=== PATIENT | male | born 1955 | race Caucasian/White ===

== ENCOUNTER 2018-10-12 | Inpatient (IN) | payer BC ==
[2018-10-12] MEDS ORDERED: EPINEPHrine 1 MG/ML SDV ONE (00:02)
[2018-10-12] MEDS ORDERED: methylPREDNISolone Sodium Succinate 125 MG/2 ML SDV ONE ×3 (00:02→04:11)
[2018-10-12] MEDS ORDERED: EPINEPHrine 1 MG/ML SDV IM ONE (00:05)
[2018-10-12] MEDS ORDERED: methylPREDNISolone Sodium Succinate 125 MG/2 ML SDV IVPUSH ONE (00:05)
[2018-10-12] MEDS ORDERED: Sodium Chloride 0.9% 1,000 ML IV ONE (00:05)
[2018-10-12] MEDS ORDERED: methylPREDNISolone Sodium Succinate 125 MG/2 ML SDV IM ONE (00:05)
[2018-10-12] MEDS ORDERED: diphenhydrAMINE 50 MG/ML SDV IVPUSH ONE (00:06)
[2018-10-12] MEDS ORDERED: Famotidine 20 MG/2 ML SDV IVPUSH ONE (00:06)
[2018-10-12] MEDS ORDERED: Famotidine 20 MG/2 ML SDV ONE (00:07)
[2018-10-12] MEDS ORDERED: diphenhydrAMINE 50 MG/ML SDV ONE (00:07)
--- NOTE | 2018-10-12 00:18 | EDM.PDOC ---
ED HPI GENERAL MEDICAL PROBLEM - General Stated Complaint: ALLERGIC REACTION Time Seen by Provider: 10/12/18 00:18 Source of Information: Reports: Patient - History of Present Illness INITIAL COMMENTS - FREE TEXT/NARRATIVE: HISTORY AND PHYSICAL: History of present illness: [Patient presents by private vehicle He has severe tongue swelling and is unable to speak, his lips and appears to be his anterior tongue is swollen to the point where protrudes from his mouth, despite this he does maintain his own airway prohibiting nasally his lungs are clear as O2 sat is 95%. As the patient is unable to speak I am unable to obtain any other history although he brought a ER discharge sheet from [facility] emergency room from August where was suspected he had a losartan or amlodipine allergy He is also carrying an empty bottle of amlodipine, he has a sticker states he is taking morphine amlodipine and losartan Outside of that I have no further history at this time I did consult anesthesia and general surgery for definitive airway consultation ] Review of systems: As per history of present illness and below otherwise all systems reviewed and negative. Past medical history: As per history of present illness and as reviewed below otherwise noncontributory. Surgical history: As per history of present illness and as reviewed below otherwise noncontributory. Social history: No reported history of drug or alcohol abuse. Family history: As per history of present illness and as reviewed below otherwise noncontributory. Physical exam: HEENT: Atraumatic, normocephalic, pupils reactive, negative for conjunctival pallor or scleral icterus, mucous membranes moist, throat clear, neck supple, nontender, trachea midline. Lungs: Clear to auscultation, breath sounds equal bilaterally, chest nontender. Heart: S1S2, regular, negative for clicks, rubs, or JVD. Abdomen: Soft, nondistended, nontender. Negative for masses or hepatosplenomegaly. Negative for costovertebral tenderness. Pelvis: Stable nontender. Genitourinary: Deferred. Rectal: Deferred. Extremities: Atraumatic, negative for cords or calf pain. Neurovascular unremarkable. Neuro: Awake, alert, oriented. Cranial nerves II through XII unremarkable. Cerebellum unremarkable. Motor and sensory unremarkable throughout. Exam nonfocal. Diagnostics: [CBC CMP UA troponin INR EKG Chest 1 view ] Therapeutics: [Normal saline Solu-Medrol 125 mg IM Epinephrine 0.5 mg IM Solu-Medrol 125 mg IV Benadryl 50 mg IV Famotidine 20 mg IV ] Impression: [Anaphylaxis] Definitive disposition and diagnosis as appropriate pending reevaluation and review of above. - Related Data Allergies Allergy/AdvReac Type Severity Reaction Status Date / Time amlodipine Allergy Airway Verified 10/12/18 00:22 Tightness Home Meds: Home Meds . [No Known Home Meds] 10/12/18 [History] Losartan [Cozaar] 25 mg PO DAILY 10/12/18 [History] amLODIPine [Norvasc] 2.5 mg PO DAILY 10/12/18 [History] metFORMIN [Glucophage XR] 500 mg PO BIDMEALS 10/12/18 [History] ED ROS GENERAL - Review of Systems Review Of Systems: See Below ED EXAM, GENERAL - Physical Exam Exam: See Below Course - Vital Signs Last Recorded V/S: Last Vital Signs Temp 97.9 F 10/12/18 00:30 Pulse 98 10/12/18 01:50 Resp 20 10/12/18 01:50 BP 149/91 H 10/12/18 01:50 Pulse Ox 93 L 10/12/18 01:50 - Orders/Labs/Meds Orders: Active Orders 24 hr Category Date Time Status EKG Documentation Completion [RC] STAT Care 10/12/18 00:57 Active Notify Provider Consults [RC] ASDIRECTED Care 10/12/18 00:45 Active Consult to Physician [CONS] Stat Cons 10/12/18 00:43 Active UA RFX CHAPARRITA AND CULT IF INDIC [URIN] Stat Lab 10/12/18 00:57 Ordered Lactated Ringers [Ringers, Lactated] 1,000 ml Med 10/12/18 01:45 Active IV STAT Medication Orders Lactated Ringer's (Ringers, Lactated) 1,000 mls @ 100 mls/hr IV STAT MIKY Last Admin: 10/12/18 01:41 Dose: 100 mls/hr Labs: Laboratory Tests 10/12/18 10/12/18 Range/Units 00:05 00:05 WBC 9.61 (4.0-11.0) K/uL RBC 5.13 (4.50-5.90) M/uL Hgb 16.6 (13.0-17.0) g/dL Hct 46.8 (38.0-50.0) % MCV 91.2 (80.0-98.0) fL MCH 32.4 H (27.0-32.0) pg MCHC 35.5 (31.0-37.0) g/dL RDW Std Deviation 41.3 (28.0-62.0) fl RDW Coeff of Nicolás 12 (11.0-15.0) % Plt Count 225 (150-400) K/uL MPV 10.10 (7.40-12.00) fL Neut % (Auto) 71.5 (48.0-80.0) % Lymph % (Auto) 13.4 L (16.0-40.0) % [place] % (Auto) 10.1 (0.0-15.0) % Eos % (Auto) 4.5 (0.0-7.0) % Baso % (Auto) 0.5 (0.0-1.5) % Neut # (Auto) 6.9 H (1.4-5.7) K/uL Lymph # (Auto) 1.3 (0.6-2.4) K/uL [place] # (Auto) 1.0 H (0.0-0.8) K/uL Eos # (Auto) 0.4 (0.0-0.7) K/uL Baso # (Auto) 0.1 (0.0-0.1) K/uL Nucleated RBC % 0.0 /100WBC Nucleated RBCs # 0 K/uL Sodium 138 (136-148) mmol/L Potassium 4.2 (3.5-5.1) mmol/L Chloride 102 (98-107) mmol/L Carbon Dioxide 26.5 (21.0-32.0) mmol/L BUN 16 (7.0-18.0) mg/dL Creatinine 1.1 (0.8-1.3) mg/dL Est Cr Clr Drug Dosing TNP Estimated GFR (MDRD) > 60.0 ml/min Glucose 180 H (74-106) mg/dL Calcium 9.0 (8.5-10.1) mg/dL Total Bilirubin 0.7 (0.2-1.0) mg/dL AST 15 (15-37) IU/L ALT 28 (14-63) IU/L Alkaline Phosphatase 83 (46-116) U/L Troponin I < 0.050 (0.000-0.056) ng/mL Total Protein 7.2 (6.4-8.2) g/dL Albumin 4.2 (3.4-5.0) g/dL Globulin 3.0 (2.6-4.0) g/dL Albumin/Globulin Ratio 1.4 (0.9-1.6) Meds: Medications Generic Name Dose Route Start Last Admin Trade Name Freq PRN Reason Stop Dose Admin Lactated Ringer's 1,000 mls @ 100 mls/hr 10/12/18 01:45 10/12/18 01:41 Ringers, Lactated IV 100 mls/hr STAT MIKY Administration Discontinued Medications Generic Name Dose Route Start Last Admin Trade Name Freq PRN Reason Stop Dose Admin Diphenhydramine HCl 50 mg 10/12/18 00:06 10/12/18 00:10 Benadryl IVPUSH 10/12/18 00:07 50 mg ONETIME ONE Administration Diphenhydramine HCl Confirm 10/12/18 00:07 10/12/18 01:20 Benadryl Administered 10/12/18 00:08 Not Given Dose 50 mg .ROUTE .STK-MED ONE Epinephrine HCl Confirm 10/12/18 00:02 10/12/18 01:20 Adrenalin Administered 10/12/18 00:03 Not Given Dose 1 mg .ROUTE .STK-MED ONE Epinephrine HCl 0.5 mg 10/12/18 00:05 10/12/18 00:05 Adrenalin IM 10/12/18 00:06 0.5 mg ONETIME ONE Administration Famotidine 20 mg 10/12/18 00:06 10/12/18 00:10 Pepcid IVPUSH 10/12/18 00:07 20 mg ONETIME ONE Administration Famotidine Confirm 10/12/18 00:07 10/12/18 01:20 Pepcid Administered 10/12/18 00:08 Not Given Dose 20 mg .ROUTE .STK-MED ONE Fentanyl Confirm 10/12/18 01:13 Sublimaze Administered 10/12/18 01:14 Dose 100 mcg .ROUTE .STK-MED ONE Sodium Chloride 1,000 mls @ 999 mls/hr 10/12/18 00:05 10/12/18 00:06 Normal Saline IV 10/12/18 01:05 999 mls/hr .Bolus ONE Administration Methylprednisolone Sodium Succinate Confirm 10/12/18 00:02 10/12/18 01:19 Solu-Medrol Administered 10/12/18 00:03 Not Given Dose 125 mg .ROUTE .STK-MED ONE Methylprednisolone Sodium Succinate 125 mg 10/12/18 00:05 10/12/18 01:10 Solu-Medrol IVPUSH 10/12/18 00:06 125 mg ONETIME ONE Administration Methylprednisolone Sodium Succinate Confirm 10/12/18 00:07 10/12/18 01:19 Solu-Medrol Administered 10/12/18 00:08 Not Given Dose 125 mg .ROUTE .STK-MED ONE Methylprednisolone Sodium Succinate 125 mg 10/12/18 00:05 10/12/18 00:05 Solu-Medrol IM 10/12/18 00:06 125 mg ONETIME ONE Administration Midazolam HCl Confirm 10/12/18 01:13 Versed 1 Mg/Ml Administered 10/12/18 01:14 Dose 2 mg .ROUTE .STK-MED ONE Propofol Confirm 10/12/18 01:13 Diprivan 20 Ml Administered 10/12/18 01:14 Dose 400 mg .ROUTE .STK-MED ONE Rocuronium [place] Confirm 10/12/18 01:13 Zemuron Administered 10/12/18 01:14 Dose 100 mg .ROUTE .STK-MED ONE Succinylcholine Chloride Confirm 10/12/18 01:13 Succinylcholine Chloride Administered 10/12/18 01:14 Dose 200 mg .ROUTE .STK-MED ONE Departure - Departure Time of Disposition: 02:13 Disposition: Refer to Observation Condition: Poor Clinical Impression: Angioedema, Tongue swelling - Discharge Information Referrals: PCP,None [Primary Care Provider] - - My Orders Last 24 Hours: My Active Orders 10/12/18 00:43 Consult to Physician [CONS] Stat 10/12/18 00:45 Notify Provider Consults [RC] ASDIRECTED 10/12/18 00:57 EKG Documentation Completion [RC] STAT UA RFX CHAPARRITA AND CULT IF INDIC [URIN] Stat - Assessment/Plan Last 24 Hours: My Active Orders 10/12/18 00:43 Consult to Physician [CONS] Stat 10/12/18 00:45 Notify Provider Consults [RC] ASDIRECTED 10/12/18 00:57 EKG Documentation Completion [RC] STAT UA RFX CHAPARRITA AND CULT IF INDIC [URIN] Stat
[2018-10-12] MEDS ORDERED: Midazolam 1 MG/ML 2 ML SDV ONE (01:13)
[2018-10-12] MEDS ORDERED: fentaNYL 100 MCG/2 ML SDV ONE (01:13)
[2018-10-12] MEDS ORDERED: Rocuronium 100 MG/10 ML Syringe ONE (01:13)
[2018-10-12] MEDS ORDERED: Propofol 200 MG/20 ML SDV ONE (01:13)
[2018-10-12 01:21] LABS: CHLORIDE,CL 102 mmol/L (98-107); SODIUM,NA 138 mmol/L (136-148)
--- NOTE | 2018-10-12 01:22 | CR ---
Indication: Shortness of breath Technique: Chest 1 view Comparison: None Findings/Impression: Normal cardiomediastinal silhouette. Clear lungs and pleural spaces. No acute osseous abnormality. Dictated by Sophia Palmer MD @ Oct 12 2018 1:19AM Signed by Dr. Sophia Palmer @ Oct 12 2018 1:20AM
[2018-10-12] MEDS ORDERED: Lactated Ringers 1,000 ML IV SCH ×2 (01:45→02:30)
--- NOTE | 2018-10-12 02:01 | PCM.SN ---
- Free Text/Narrative Note: Called to ER for allergic reaction, significant tongue swelling. Received epi 500mg/benadryl 50mg/pepcid 20mg/solu-medrol 250mg. Tongue significantly swollen, unable to see any oral opening. Maintaining airway, Sa02 94% on room air. Surgeons in. Dr. Burns called. Care discussion. Emergency airway cart hear from OR. Sa02' on room air's maintained. VSS. Over period of 1.5 hrs tongue slowly reduced in size. Sa02 to 98% on room air. Opted to continue to monitor and be available incase airway emergency occurs. Swelling continues to lessen. Sa02 98% VSS 00:10-02:10
--- NOTE | 2018-10-12 02:25 | PCM.SN ---
- Free Text/Narrative Note: I was asked to provide a secondary surgical consult on Mr. Meyers. He presented tonight with angioedema of the tongue occluding his oral airway. He was reported to be non-stridorous on arrival. His O2 sats were 94%. Given his tenuous airway, Dr. Encinas and Dr. Shepard were considering transferring him. However, in order to do this, a definitive airway would have to be established. I was called in 1 hour after his admission to the ER. He was given 250mg of solumedrol. Benadryl 50, famotidine 20 mg. His airway swelling slowly started improving. I was asked to come in to assist in decision making and any possible procedure for securing his airway. We discussed nasotracheal fiberoptic intubation as well as percutaneous tracheostomy. We brought the airway cart from the OR and the anesthesiologist. While in the ER, the angioedema of his tongue improved significantly and over the course of another hour his tongue was able to be placed back in his mouth and his airway was open. We discussed the next steps. He will not be transfered but will be monitoring in the ICU. Dr. Encinas will stay in house in case the swelling should worsen. He will have scheduled famoitdine, solumedrol and benadryl. Should his swelling worsen HORSEBACK EXCAVATOR and Dr. Encinas to secure an airway as soon as possible.
[2018-10-12] MEDS ORDERED: Morphine 10 MG/ML Syringe IVPUSH PRN (02:26)
[2018-10-12] MEDS ORDERED: Sodium Chloride 0.9% 2.5 ML Syringe FLUSH PRN (02:26)
[2018-10-12] MEDS ORDERED: Sodium Chloride 0.9% 10 ML SDV IV PRN (02:26)
[2018-10-12] MEDS ORDERED: Acetaminophen 650 MG Supp RECTAL PRN (02:26)
[2018-10-12] MEDS ORDERED: Sodium Chloride 0.9% 10 ML Syringe FLUSH PRN (02:26)
[2018-10-12] MEDS ORDERED: diphenhydrAMINE 50 MG/ML SDV IVPUSH SCH (02:45)
[2018-10-12] MEDS ORDERED: Morphine 4 MG/ML Syringe IVPUSH PRN (03:14)
[2018-10-12] MEDS ORDERED: methylPREDNISolone Sodium Succinate 500 MG/4 ML SDV IVPUSH SCH (04:00)
--- NOTE | 2018-10-12 05:14 | PCM.SN ---
- Free Text/Narrative Note: pt seen, chart reviewed; h/p dictated, [id number], likely allergic response, need to secure airway; Dr. Frye was kind enough to come in and offer 2nd opinion; epi/steroid given, and waiting for meds to work; after 5 hrs, tongue swelling almost completely resolved; pt breathing fine, and even talk to doctor. continue steroid, solumedrol 250 mg iv q 4 X 48 hours;
[2018-10-12] MEDS ORDERED: Heparin Sodium 5,000 Units/ML Vial SUBCUT SCH (06:00)
[2018-10-12] MEDS ORDERED: Insulin Regular, Human 100 Units/ML 10 ML Vial SUBCUT SCH (06:00)
[2018-10-12] MEDS: diphenhydrAMINE 50 MG/ML SDV IVPUSH SCH ×4 (06:27→23:47)
[2018-10-12] MEDS: Insulin Aspart 100 Units/ML 3 ML Pen SUBCUT SCH ×5 (07:22→20:52)
[2018-10-12] MEDS ORDERED: Insuln Aspart Prot/Insulin Aspart 100 Units/ML 3 ML FlexPen SUBCUT SCH (08:00)
[2018-10-12] MEDS: Heparin Sodium 5,000 Units/ML Vial SUBCUT SCH ×2 (08:33→16:33)
--- NOTE | 2018-10-12 08:53 | CONS ---
DATE OF CONSULTATION: 10/12/2018 DATE OF : 1955 PRIMARY CARE PHYSICIAN: None PCP Consult was called at the same time, the patient was seen shortly after. CONCERNING QUESTION: Swollen tongue, airway embarrassment. HISTORY OF PRESENT ILLNESS: The patient is a 63-year-old gentleman and presented to the emergency room with a tongue bigger than a fist, like a small grapefruit, and with a piece of paper for his medication. The patient is not talking. The patient was admitted urgently, put onto monitor, and apparently, the patient is saturating fine, like 95% to 96%. ALLERGIES: Please refer to nursing for details. PAST MEDICAL HISTORY: Unknown as the patient is not talking well. HOME MEDICATIONS: Unknown as the patient is not talking well. The patient is on metformin and amlodipine and losartan. PHYSICAL EXAMINATION: GENERAL: The patient is comfortable, although his eyes closed, resting. HEENT: The tongue is as big as between a grapefruit and orange and sticking out of the mouth, keep the mouth open and also drooling. LUNGS: There is no stridor and no subcu crepitus, and bilateral breath sounds. IMPRESSION: Possible allergic with swollen tongue and concern about airway. However, the patient being in that situation for over 2 hours, it does not seem the airway is compromised at the time of speaking; however, I agree that definitely airway needs to be secured before it gets worse. The patient got some Solu-Medrol and epinephrine. For the time being, the patient's swollen tongue continued to decrease in size and to the point the patient is able to move the tongue in and out. The patient remarked that he has no pain and is comfortable. We also have called in Dr. Melendez for a second opinion to see whether emergency thyroidectomy to the thyroid membrane is more appropriate or whether going to operating room for formal tracheotomy is more appropriate. Please refer to her dictation note for details. At the time of speaking, Anesthesiology and I myself were watching the patient, and we are ready to do any emergency thyroidectomy if the need arise, and we may anticipate intubation to secure the airway. As always, thank you for the kind referral. PIERO / ALLEN /[id number]
--- NOTE | 2018-10-12 10:29 | PCM48HPAN ---
Post Anesthesia Note - EVALUATION WITHIN 48HRS OF ANESTHETIC Vital Signs in Normal Range: Yes Patient Participated in Evaluation: Yes Respiratory Function Stable: Yes Airway Patent: Yes Cardiovascular Function Stable: Yes Hydration Status Stable: Yes Pain Control Satisfactory: Yes Nausea and Vomiting Control Satisfactory: Yes Mental Status Recovered: Yes Resp Rate: 12 - COMMENTS/OBSERVATIONS Free Text/Narrative:: no anesthesia problems, tongue swelling significantly reduced, he is now able to talk
[2018-10-12] MEDS: Famotidine 20 MG/2 ML SDV IVPUSH SCH ×2 (12:08→20:49)
[2018-10-13] MEDS: diphenhydrAMINE 50 MG/ML SDV IVPUSH SCH (05:02)
[2018-10-13] MEDS: Insulin Aspart 100 Units/ML 3 ML Pen SUBCUT SCH (07:56)
[2018-10-13] MEDS: Heparin Sodium 5,000 Units/ML Vial SUBCUT SCH ×2 (09:26)
[2018-10-13] MEDS: Famotidine 20 MG/2 ML SDV IVPUSH SCH (09:26)
--- NOTE | 2018-10-13 11:26 | PCM.DCSUM1 ---
Discharge Summary - Hospital Course Free Text/Narrative:: please refer to admitting h/p for detailed; pt presented to ED with a huge swollen tongue; and received steroid and responded well; pt was then admitted to icu for continue monitoring Brief History: as above Diagnosis: Stroke: No - Discharge Data Discharge Date: 10/13/18 Discharge Disposition: Home, Self-Care 01 Condition: Good - Patient Summary/Data Consults: Consultations 10/12/18 00:43 Consult to Physician [CONS] Stat Hospital Course: icu stay is uneventful; tongue swollen almost all resolved in 6 hrs after solumedrol; pt started able to talk, and tolerated po diet the next day; pt completely comfortable, and amb by self; and demanded to leave ama; pt looked great, and was dc home on steroid taper; pt would have to have a visit with his primary care provider dr. graves to assess what triggered the event; pt himself has no clue; asked pt several times, to reconstruct from memory what happened 12 hrs prior to the event; pt will try; angelica w me 1 - 2 wks; pt also been told, if tongue swelling recur, seek medical attention urgently. pt voiced understanding - Patient Instructions Diet: Regular Diet as Tolerated Activity: No Strenuous Activities Driving: Do Not Drive Showering/Bathing: May Shower Notify Provider of: Fever, Nausea and/or Vomiting - Discharge Plan Home Medications: Home Meds . [No Known Home Meds] 10/12/18 [History] Losartan [Cozaar] 25 mg PO DAILY 10/12/18 [History] amLODIPine [Norvasc] 2.5 mg PO DAILY 10/12/18 [History] metFORMIN [Glucophage XR] 500 mg PO BIDMEALS 10/12/18 [History] Forms: ED Department Discharge Referrals: PCP,None [Primary Care Provider] - - Discharge Summary/Plan Comment DC Time >30 min.: Yes - General Info Date of Service: 10/13/18 - Patient Data Vitals - Most Recent: Last Vital Signs Temp 98.1 F 10/13/18 08:00 Pulse 78 10/12/18 19:00 Resp 24 H 10/13/18 09:00 BP 151/84 H 10/13/18 09:00 Pulse Ox 96 10/13/18 09:00 Weight - Most Recent: 212 lb 11.937 oz I&O - Last 24 hours: Intake & Output 10/12/18 10/13/18 10/13/18 22:59 06:59 14:59 Intake Total 324 204 Output Total 400 250 Balance -76 -46 Lab Results - Last 24 hrs: Laboratory Results - last 24 hr 10/12/18 10/12/18 10/12/18 Range/Units 12:06 14:12 17:16 POC Glucose 272 H 271 H 292 H (60-110) mg/dL 10/12/18 10/13/18 Range/Units 20:10 07:48 POC Glucose 331 H 285 H (60-110) mg/dL Med Orders - Current: Current Medications Acetaminophen (Tylenol) 650 mg RECTAL Q6H PRN PRN Reason: Pain (mild 1-3) Diphenhydramine HCl (Benadryl) 50 mg IVPUSH Q6H [facility] Last Admin: 10/13/18 05:02 Dose: 50 mg Famotidine (Pepcid) 20 mg IVPUSH BID [facility] Last Admin: 10/13/18 09:26 Dose: 20 mg Heparin Sodium (Porcine) (Heparin Sodium) 5,000 units SUBCUT Q8H [facility] Last Admin: 10/13/18 09:26 Dose: 5,000 units Lactated Ringer's (Ringers, Lactated) 1,000 mls @ 100 mls/hr IV ASDIRECTED [facility] Methylprednisolone Sodium Succinate 250 mg/ Sodium Chloride 102 mls @ 196.154 mls/hr IV Q4H [facility] Last Admin: 10/13/18 07:57 Dose: 196.154 mls/hr Insulin Aspart (Novolog) 0 unit SUBCUT ACBED [facility]; Protocol Last Admin: 10/13/18 07:56 Dose: 3 units Morphine Sulfate (Morphine) 3 mg IVPUSH Q1H PRN PRN Reason: Pain (severe 7-10) Sodium Chloride (Saline Flush) 10 ml FLUSH ASDIRECTED PRN PRN Reason: Keep Vein Open Sodium Chloride (Saline Flush) 2.5 ml FLUSH ASDIRECTED PRN PRN Reason: Keep Vein Open Sodium Chloride (Normal Saline) 10 ml IV ASDIRECTED PRN PRN Reason: IV Use Discontinued Medications Diphenhydramine HCl (Benadryl) 50 mg IVPUSH ONETIME ONE Stop: 10/12/18 00:07 Last Admin: 10/12/18 00:10 Dose: 50 mg Diphenhydramine HCl (Benadryl) Confirm Administered Dose 50 mg .ROUTE .STK-MED ONE Stop: 10/12/18 00:08 Last Admin: 10/12/18 01:20 Dose: Not Given Diphenhydramine HCl (Benadryl) 50 mg IVPUSH Q6H MIKY Epinephrine HCl (Adrenalin) Confirm Administered Dose 1 mg .ROUTE .STK-MED ONE Stop: 10/12/18 00:03 Last Admin: 10/12/18 01:20 Dose: Not Given Epinephrine HCl (Adrenalin) 0.5 mg IM ONETIME ONE Stop: 10/12/18 00:06 Last Admin: 10/12/18 00:05 Dose: 0.5 mg Famotidine (Pepcid) 20 mg IVPUSH ONETIME ONE Stop: 10/12/18 00:07 Last Admin: 10/12/18 00:10 Dose: 20 mg Famotidine (Pepcid) Confirm Administered Dose 20 mg .ROUTE .STK-MED ONE Stop: 10/12/18 00:08 Last Admin: 10/12/18 01:20 Dose: Not Given Fentanyl (Sublimaze) Confirm Administered Dose 100 mcg .ROUTE .STK-MED ONE Stop: 10/12/18 01:14 Heparin Sodium (Porcine) (Heparin Sodium) 5,000 units SUBCUT Q8H [facility] Last Admin: 10/12/18 07:28 Dose: Not Given Sodium Chloride (Normal Saline) 1,000 mls @ 999 mls/hr IV .Bolus ONE Stop: 10/12/18 01:05 Last Admin: 10/12/18 00:06 Dose: 999 mls/hr Lactated Ringer's (Ringers, Lactated) 1,000 mls @ 100 mls/hr IV STAT MIKY Last Admin: 10/12/18 01:41 Dose: 100 mls/hr Methylprednisolone Sodium Succinate 250 mg/ Sodium Chloride 104 mls @ 200 mls/ hr IV Q4H MIKY Last Admin: 10/12/18 04:30 Dose: 200 mls/hr Methylprednisolone Sodium Succinate 250 mg/ Sodium Chloride 102 mls @ 196.154 mls/hr IV Q4H MIKY Last Admin: 10/12/18 19:22 Dose: Not Given Insulin Aspart (Novolog Mix 70-30) 0 unit SUBCUT BIDMEALS [facility]; Protocol Methylprednisolone Sodium Succinate (Solu-Medrol) Confirm Administered Dose 125 mg .ROUTE .STK-MED ONE Stop: 10/12/18 00:03 Last Admin: 10/12/18 01:19 Dose: Not Given Methylprednisolone Sodium Succinate (Solu-Medrol) 125 mg IVPUSH ONETIME ONE Stop: 10/12/18 00:06 Last Admin: 10/12/18 01:10 Dose: 125 mg Methylprednisolone Sodium Succinate (Solu-Medrol) Confirm Administered Dose 125 mg .ROUTE .STK-MED ONE Stop: 10/12/18 00:08 Last Admin: 10/12/18 01:19 Dose: Not Given Methylprednisolone Sodium Succinate (Solu-Medrol) 125 mg IM ONETIME ONE Stop: 10/12/18 00:06 Last Admin: 10/12/18 00:05 Dose: 125 mg Methylprednisolone Sodium Succinate (Solu-Medrol) Confirm Administered Dose 250 mg .ROUTE .STK-MED ONE Stop: 10/12/18 04:12 Last Admin: 10/12/18 04:17 Dose: Not Given Midazolam HCl (Versed 1 Mg/Ml) Confirm Administered Dose 2 mg .ROUTE .STK-MED ONE Stop: 10/12/18 01:14 Morphine Sulfate (Morphine) 3 mg IVPUSH Q1H PRN PRN Reason: Pain (severe 7-10) Propofol (Diprivan 20 Ml) Confirm Administered Dose 400 mg .ROUTE .STK-MED ONE Stop: 10/12/18 01:14 Rocuronium [place] (Zemuron) Confirm Administered Dose 100 mg .ROUTE .STK-MED ONE Stop: 10/12/18 01:14 Succinylcholine Chloride (Succinylcholine Chloride) Confirm Administered Dose 200 mg .ROUTE .STK-MED ONE Stop: 10/12/18 01:14 - Exam General: Reports: Alert, Oriented Neck: Reports: Supple, Trachea Midline (voice clear, no stridor) Lungs: Reports: Clear to Auscultation GI/Abdominal Exam: Normal Bowel Sounds, Soft, Non-Tender
== END 2018-10-13 11:17 | disposition home or self-care (01) | DRG 811 ==
LOC: MW.ED → MW.ICU 02:14 → OBSVTOIN 02:26
PROVIDERS: ADMIT Surgery; ATTEND Surgery
DX: T78.3XXA Angioneurotic edema, initial encounter (principal); I10 Essential (primary) hypertension; E11.9 Type 2 diabetes mellitus without complications; Z79.84 Long term (current) use of oral hypoglycemic drugs; Z79.899 Other long term (current) drug therapy; Z88.8 Allergy status to other drugs, medicaments and biological substances
CPT/HCPCS: 36415; 71045; 71045-26; 80053; 81003; 82962; 84484; 85025; 93005; 96360; 96361; 96372; 96374; 96375; 99291; 99292; J0171; J0330; J1200; J1644; J1815-GY; J2250; J2704; J2930; J3010; J3490; J7030; J7040; J7120